=== PATIENT | female | born 1950 | race Caucasian/White ===

== ENCOUNTER 2016-10-06 18:23 | Emergency (ER) | payer OTHER, MEDICARE ==
[2016-10-06 18:31] VITALS: RESP 20
--- NOTE | 2016-10-06 18:45 | EDPHY ---
H & P Time Seen by Provider: 10/06/16 18:39 HPI/ROS: CHIEF COMPLAINT: Hypoxemia, shortness of breath HISTORY OF PRESENT ILLNESS: This patient is a 66 year old female with a history of acute hypoxic respiratory failure in March 2015 and chronic bronchiolitis obliterans who presents to the Emergency Department complaining of intermittent shortness of breath and associated chest tightness and cough beginning two weeks prior to arrival and worsening over time. She has not needed to use oxygen at home since March of 2016 with last reported dose of prednisone in May. She measures her O2 saturation at home and reports measurements between 70-85% over the past two weeks. Today, she measured her O2 saturation at 64% prompting her to presents to the ED. She denies fever or cold-like symptoms. Medical history also includes prior TX, valvular heart disease, and hypertension. REVIEW OF SYSTEMS: Constitutional: No fever, no chills Eyes: No visual changes ENT: No sore throat Respiratory: As in HPI Cardiac: No chest pain Gastrointestinal: No nausea, no vomiting, no abdominal pain Genitourinary: No hematuria, no dysuria Musculoskeletal: No leg pain or swelling Skin: No rash Neurological: No headache, no numbness, no weakness Psychiatric: No depression Past Medical/Surgical History: Prior medical records reviewed by myself including instigating respiratory incident on 05/04/2015. PMH includes: Hypoxic respiratory failure, bronchiolitis obliterans, hypertension, hyperlipidemia, prior TX, mitral valve prolapse, hiatal hernia, GERD. PSH includes: Appendectomy, hysterectomy, tonsillectomy, cholecystectomy, knee surgery. 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 Never smoked. Smoking Status: Never smoked Physical Exam: General Appearance: Alert, no distress Eyes: Pupils equal and round, no conjunctival pallor or injection ENT, Mouth: Mucous membranes moist Neck: Normal inspection Respiratory: Rales chcf up bilaterally, normal respiratory rate Cardiovascular: Regular rate and rhythm Gastrointestinal: Abdomen is soft and non- tender Neurological: A&O, nonfocal, normal gait Skin: Warm and dry, no rash Extremities: Nontender, no pedal edema Psychiatric: Mood and affect normal Constitutional: Initial Vital Signs Temperature (C) 36.9 C 10/06/16 18:28 Heart Rate 88 10/06/16 18:28 Respiratory Rate 20 10/06/16 18:28 Blood Pressure 142/92 H 10/06/16 18:28 O2 Sat (%) 77 L 10/06/16 18:28 O2 Delivery Mode Room Air O2 (L/minute) 4 Allergies/Adverse Reactions: aspirin [Aspirin] Allergy (Severe, Verified 10/06/16 18:26) SEVERE HIVES/THROAT CLOSES neomycin [Neomycin] Allergy (Severe, Verified 10/06/16 18:26) SEVERE SKIN RASH Shellfish *RETIRED-03/10/12 [Shellfish] Allergy (Severe, Verified 10/06/16 18:26 ) Anaphylaxis clarithromycin [From Biaxin] Allergy (Intermediate, Verified 10/06/16 18:26) Hives iodine [Iodine] Allergy (Intermediate, Verified 10/06/16 18:26) Hives strawberry [[place]] Allergy (Intermediate, Verified 10/06/16 18:26) SWELLING/HIVES Sulfa (Sulfonamide Antibiotics) Allergy (Intermediate, Verified 10/06/16 18:26) Hives clobetasol [Clobetasol] Allergy (Verified 10/06/16 18:26) SKIN RASH ALL NARCOTICS Allergy (Severe, Uncoded 11/16/11 17:10) Vomiting Home Medications: Medication Instructions Recorded Amlodipine Besylate [Norvasc] 5 mg PO HS 10/06/16 Azithromycin [Zithromax] 250 mg PO DAILY #4 tab 10/06/16 Nebivolol HCl [Bystolic] 10 mg PO HS 10/06/16 predniSONE 1 tab PO DAILY #30 tab 10/06/16 Medical Decision Making - Diagnostics EKG Interpretation: EKG interpreted by me reveals normal sinus rhythm, rate 77; no ST/T changes. Unchanged from EKG on 05/05/2015. Imaging: Imaging Impressions Chest X-Ray 10/06/16 18:40 Impression: Minimal airways disease unchanged. No acute process. ED Course/Re-evaluation: This is a 66 year old female with complex pulmonary history including bronchiolitis obliterans and respiratory failure first presenting in March 2015 and treated intermittently with prednisolone since that time. She reports intermittent shortness of breath with chest tightness and self-measured hypoxemia ranging from 70-85% over the past two weeks. No cold or flu-like symptoms. She is afebrile. Her exam is significant for rales bilaterally. She was placed on O2 via nasal cannula in the ED with improvement to O2 saturation of 80%. Will proceed with 3ml IH albuterol breathing treatment, 125mg IV Prednisolone, and plan for admission. The patient is agreeable to this treatment plan. She does not wish to proceed with any CT imaging today and declined D-dimer. Labs reviewed and are unremarkable. 1951: The patient is declining admission and stating that she feels much better. Will take her off of O2 and reevaluate. 1952: Consultation with Dr. Stanton, hospitalist, who accepts the admission if the patient is willing to stay. 2007: Following road test, the patient is 77% on RA. She still refuses to stay in the hospital. Will contact respiratory therapy to see if we can arrange outpatient oxygen. 2133: After extensive conversations regarding the risk of choosing to go home, the patient still refuses admission. She understands risk of worsening respiratory failure, respiratory arrest, or . Differential Diagnosis: Differential diagnosis includes though it is not limited to pneumonia, pneumothorax, pulmonary embolism, aortic dissection, pericarditis, acute coronary syndrome. - Data Points Laboratory Results: Laboratory Results 10/06/16 19:20 10/06/16 19:20 10/06/16 10/06/16 19:20 19:20 WBC 8.85 10^3/uL 10^3/uL (3.80-9.50) RBC 4.80 10^6/uL 10^6/uL (4.18-5.33) Hgb 14.4 g/dL g/dL (12.6-16.3) Hct 41.7 % % (38.0-47.0) MCV 86.9 fL fL (81.5-99.8) MCH 30.0 pg pg (27.9-34.1) MCHC 34.5 g/dL g/dL (32.4-36.7) RDW 13.6 % % (11.5-15.2) Plt Count 286 10^3/uL 10^3/uL (150-400) MPV 9.1 fL fL (8.7-11.7) Neut % (Auto) 68.6 % % (39.3-74.2) Lymph % (Auto) 21.8 % % (15.0-45.0) [place] % (Auto) 6.4 % % (4.5-13.0) Eos % (Auto) 2.1 % % (0.6-7.6) Baso % (Auto) 0.8 % % (0.3-1.7) Nucleat RBC Rel Count 0.0 % % (0.0-0.2) Absolute Neuts (auto) 6.06 10^3/uL 10^3/uL (1.70-6.50) Absolute Lymphs (auto) 1.93 10^3/uL 10^3/uL (1.00-3.00) Absolute Monos (auto) 0.57 10^3/uL 10^3/uL (0.30-0.80) Absolute Eos (auto) 0.19 10^3/uL 10^3/uL (0.03-0.40) Absolute Basos (auto) 0.07 10^3/uL 10^3/uL (0.02-0.10) Absolute Nucleated RBC 0.00 10^3/uL 10^3/uL (0-0.01) Immature Gran % 0.3 % % (0.0-1.1) Immature Gran # 0.03 10^3/uL 10^3/uL (0.00-0.10) Sodium 139 mEq/L mEq/L (134-144) Potassium 4.7 mEq/L mEq/L (3.5-5.2) Chloride 106 mEq/L mEq/L (97-110) Carbon Dioxide 22 mEq/l mEq/l (22-31) Anion Gap 11 mEq/L mEq/L (8-16) BUN 17 mg/dL mg/dL (7-23) Creatinine 0.9 mg/dL mg/dL (0.6-1.0) Estimated GFR > 60 Glucose 103 mg/dL H mg/dL (70-100) Calcium 10.4 mg/dL mg/dL (8.5-10.4) Troponin I < 0.012 ng/mL ng/mL (0-0.034) NT-Pro-B Natriuret Pep 636 pg/mL H pg/mL (0-125) Medications Given: Discontinued Medications Albuterol/Ipratropium (Duoneb) 3 ml IH EDNOW ONE Stop: 10/06/16 18:53 Last Admin: 10/06/16 19:31 Dose: 3 ml Azithromycin (Zithromax) 500 mg PO EDNOW ONE PRN Reason: Protocol Stop: 10/06/16 20:14 Last Admin: 10/06/16 22:06 Dose: Not Given Methylprednisolone Sodium Succinate (Solu-Medrol) 125 mg IVP EDNOW ONE Stop: 10/06/16 18:53 Last Admin: 10/06/16 19:31 Dose: 125 mg Departure - Departure Disposition: [facility] Inpatient Acute Clinical Impression: Hypoxia, Bronchiolitis obliterans Condition: Fair Report Scribed for: Barbara Mendoza Report Scribed by: Yane Javier Date of Report: 10/06/16 Time of Report: 18:42 Physician Review and Approval Statement: 10/06/16 18:42 Portions of this note were transcribed by a adjunct faculty for medical terminology. I personally performed a history, physical exam, medical decision making, and confirmed accuracy of information the transcribed note.
[2016-10-06] MEDS ORDERED: methylPREDNISolone SOD SUCC 125 MG/2 ML VIAL IVP ONE (18:52)
[2016-10-06] MEDS ORDERED: IPRATROPIUM/ALBUTEROL 3 ML DEYVIAL IH ONE (18:52)
--- NOTE | 2016-10-06 19:04 | CPEKG ---
Heart Rate: 77 RR Interval: 779 P-R Interval: 180 QRSD Interval: 84 QT Interval: 380 QTC Interval: 431 P [place]: 46 QRS [place]: -9 T Wave [place]: 23 EKG Severity - ABNORMAL ECG - EKG Impression: SINUS RHYTHM EKG Impression: ABNRM R PROG, CONSIDER ASMI OR LEAD PLACEMENT Electronically Signed By: Barbara Mendoza 06-Oct-2016 19:21:29
[2016-10-06 19:32] LABS: % IMMATURE GRANULYOCYTES 0.3 % (0.0-1.1); ABSOLUTE IMMATURE GRANULOCYTES 0.03 10^3/uL (0.00-0.10); ADD DIFF? NO; ADD MORPH? NO; ADD SCAN? NO; ATYPICAL LYMPHOCYTE FLAG 0 (0-99); FRAGMENT RBC FLAG 0 (0-99); HEMATOCRIT 41.7 % (38.0-47.0); HEMOGLOBIN 14.4 g/dL (12.6-16.3); LEFT SHIFT FLG 0 (0-99); LIPEMIA HEMOLYSIS FLAG 90 (0-99); MEAN CELL HEMOGLOBIN CONCENTR. 34.5 g/dL (32.4-36.7); MEAN CELL VOLUME 86.9 fL (81.5-99.8); MEAN PLATELET VOLUME 9.1 fL (8.7-11.7); PLATELET CLUMPS FLAG 50 (0-99); PLATELET COUNT 286 10^3/uL (150-400); RED CELL DISTRIBUTION WIDTH 13.6 % (11.5-15.2)
[2016-10-06 19:54] LABS: ANION GAP 11 mEq/L (8-16); CALCIUM 10.4 mg/dL (8.5-10.4); CARBON DIOXIDE 22 mEq/l (22-31); CHLORIDE 106 mEq/L (97-110); CREATININE 0.9 mg/dL (0.6-1.0); GLOMERULAR FILTRATION RATE > 60; GLUCOSE 103 mg/dL (70-100); POTASSIUM 4.7 mEq/L (3.5-5.2); SODIUM 139 mEq/L (134-144)
[2016-10-06 20:06] LABS: TROPONIN I < 0.012 ng/mL (0-0.034)
[2016-10-06] MEDS ORDERED: ONDANSETRON DISINTEGRATING 4 MG TAB PO PRN (20:06)
[2016-10-06] MEDS ORDERED: ONDANSETRON 4 MG/2 ML VIAL IVP PRN (20:06)
[2016-10-06] MEDS ORDERED: ACETAMINOPHEN 325 MG TAB PO PRN (20:06)
[2016-10-06] MEDS ORDERED: AZITHROMYCIN 250 MG TAB PO ONE (20:13)
--- NOTE | 2016-10-06 20:37 | PDGENHP ---
History and Physical - Chief Complaint Acute shortness of breath - History of Present Illness PCP: Dr. Madrigal Primary Pulm: Dr. De Guzman Primary Cards: Dr. Castrejon HPI: 66 yo F p/w acute shortness of breath characterized as inability to catch her breath and getting winded easily, exacerbated by physical activity, assoc w / non-productive cough but no other infectious symptoms. Onset approx 2 weeks ago and duration persistent and worsening thereafter. Denies any recent travel or periods of immobility. She has been documenting home o2 sats, and they have been in the high 70s-80s% most of the past two weeks, but acutely dropped to 64 % on room air today. She has not taken any steroids since May 2016. She denies overt chest pain, denies leg swelling or weight gain. History Information - Allergies/Home Medication List Allergies/Adverse Reactions: aspirin [Aspirin] Allergy (Severe, Verified 10/06/16 18:26) SEVERE HIVES/THROAT CLOSES neomycin [Neomycin] Allergy (Severe, Verified 10/06/16 18:26) SEVERE SKIN RASH Shellfish *RETIRED-03/10/12 [Shellfish] Allergy (Severe, Verified 10/06/16 18:26 ) Anaphylaxis clarithromycin [From Biaxin] Allergy (Intermediate, Verified 10/06/16 18:26) Hives iodine [Iodine] Allergy (Intermediate, Verified 10/06/16 18:26) Hives strawberry [[place]] Allergy (Intermediate, Verified 10/06/16 18:26) SWELLING/HIVES Sulfa (Sulfonamide Antibiotics) Allergy (Intermediate, Verified 10/06/16 18:26) Hives clobetasol [Clobetasol] Allergy (Verified 10/06/16 18:26) SKIN RASH ALL NARCOTICS Allergy (Severe, Uncoded 11/16/11 17:10) Vomiting Home Medications: Amlodipine Besylate [Norvasc] 5 mg PO HS 10/06/16 [Last Taken 10/05/16 20:00] Nebivolol HCl [Bystolic] 10 mg PO HS 10/06/16 [Last Taken 10/05/16 20:00] I have personally reviewed and updated: family history, medical history, social history, surgical history - Past Medical History hypertension, hyperlipidemia Additional medical history: Bronchiolitis Obliterans, last exacerbation - w/ long steroid taper and Abx. NSTEMI Type 2 in setting of Acute Respiratory Failure. Hiatal hernia w/ GERD. Pulm HTN - Surgical History Reports: appendectomy, cholecystectomy, hysterectomy Additional surgical history: Knee, Shoulder, Bunion, Tonsils - Family History Additional family history: no family pulm hx - Social History Smoking Status: Never smoked Alcohol Use: Occasionally Drug Use: None Additional social history: independent in ADLs Review of Systems ROS: 10pt was reviewed & negative except for what was stated in HPI & below Respiratory: Reports: cough, shortness of breath Physical Exam Temp Pulse Resp BP Pulse Ox 36.9 C 88 20 142/92 H 77 L 10/06/16 18:28 10/06/16 18:28 10/06/16 18:28 10/06/16 18:28 10/06/16 20:00 Constitutional: no apparent distress, appears nourished, not in pain Eyes: PERRL, anicteric sclera, EOMI Ears, Nose, Mouth, Throat: moist mucous membranes, hearing normal, ears appear normal, no oral mucosal ulcers Cardiovascular: regular rate and rhythym, no murmur, rub, or gallop, No edema Respiratory: reduced air movement (on inspiration R base), inspiratory crackles (bilat bases, R>L), No expiratory wheeze, No bronchial breath sounds, No respiratory distress Gastrointestinal: normoactive bowel sounds, soft, non-tender abdomen, no palpable masses Neurologic: AAOx3, sensation intact bilaterally, No weakness Psychiatric: interacting appropriately, not anxious, not encephalopathic, thought process linear Lymph, Heme, Immunologic: no cervical LAD, no supraclavicular LAD Lab Data & Imaging Review 10/06/16 19:20 10/06/16 19:20 WBC 8.85 10^3/uL (3.80-9.50) 10/06/16 19:20 RBC 4.80 10^6/uL (4.18-5.33) 10/06/16 19:20 Hgb 14.4 g/dL (12.6-16.3) 10/06/16 19:20 Hct 41.7 % (38.0-47.0) 10/06/16 19:20 MCV 86.9 fL (81.5-99.8) 10/06/16 19:20 MCH 30.0 pg (27.9-34.1) 10/06/16 19:20 MCHC 34.5 g/dL (32.4-36.7) 10/06/16 19:20 RDW 13.6 % (11.5-15.2) 10/06/16 19:20 Plt Count 286 10^3/uL (150-400) 10/06/16 19:20 MPV 9.1 fL (8.7-11.7) 10/06/16 19:20 Neut % (Auto) 68.6 % (39.3-74.2) 10/06/16 19:20 Lymph % (Auto) 21.8 % (15.0-45.0) 10/06/16 19:20 [place] % (Auto) 6.4 % (4.5-13.0) 10/06/16 19:20 Eos % (Auto) 2.1 % (0.6-7.6) 10/06/16 19:20 Baso % (Auto) 0.8 % (0.3-1.7) 10/06/16 19:20 Nucleat RBC Rel Count 0.0 % (0.0-0.2) 10/06/16 19:20 Absolute Neuts (auto) 6.06 10^3/uL (1.70-6.50) 10/06/16 19:20 Absolute Lymphs (auto) 1.93 10^3/uL (1.00-3.00) 10/06/16 19:20 Absolute Monos (auto) 0.57 10^3/uL (0.30-0.80) 10/06/16 19:20 Absolute Eos (auto) 0.19 10^3/uL (0.03-0.40) 10/06/16 19:20 Absolute Basos (auto) 0.07 10^3/uL (0.02-0.10) 10/06/16 19:20 Absolute Nucleated RBC 0.00 10^3/uL (0-0.01) 10/06/16 19:20 Immature Gran % 0.3 % (0.0-1.1) 10/06/16 19:20 Immature Gran # 0.03 10^3/uL (0.00-0.10) 10/06/16 19:20 Sodium 139 mEq/L (134-144) 10/06/16 19:20 Potassium 4.7 mEq/L (3.5-5.2) 10/06/16 19:20 Chloride 106 mEq/L (97-110) 10/06/16 19:20 Carbon Dioxide 22 mEq/l (22-31) 10/06/16 19:20 Anion Gap 11 mEq/L (8-16) 10/06/16 19:20 BUN 17 mg/dL (7-23) 10/06/16 19:20 Creatinine 0.9 mg/dL (0.6-1.0) 10/06/16 19:20 Estimated GFR > 60 10/06/16 19:20 Glucose 103 mg/dL (70-100) H 10/06/16 19:20 Calcium 10.4 mg/dL (8.5-10.4) 10/06/16 19:20 Troponin I < 0.012 ng/mL (0-0.034) 10/06/16 19:20 NT-Pro-B Natriuret Pep 636 pg/mL (0-125) H 10/06/16 19:20 Visualized and Interpreted Chest x-ray results: Yes Chest X-Ray results: other (faint airway disease RLL w/o change from prior) Visualized and Interpreted EKG results: Yes EKG Interpretation: Positive for: other (Q wave in III/aVF, Poor R wave prog V2) Assessment & Plan Assessment: 66 yo F p/w acute exacerbation of bronchiolitis obliterans w/ resultant hypoxia Plan: 1. Bronchiolitis Obliterans. Acute exacerbation, does not appear to have a bacterial infectious cause (nl WBC, no fever, no infxn symptoms) and no concerning signs of ACS - significant, severe hypoxia on presentation w/ symptoms - reviewed outside records including DC Summary by Dr. 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 Mendoza, if patient is able to have home o2 arranged and feels safe managing, then we agree to discharge her from ED - recommended to patient she call Dr. De Guzman on Saturday and arrange immediate outpt f/u, and if unable, then call Dr. Castrejon for outpt f/u 2. Pulm HTN. Chronic, likely warrants repeat outpt Echo - arranging O2 3. HTN. Chronic, cont home Rx as is Patient would like to be discharged from ED at this time, will arrange home o2.
[2016-10-06 22:08] VITALS: BP 185/83; PULSE 86; TEMP 98.8; O2SAT 85
[2016-10-07] MEDS ORDERED: ENOXAPARIN 40 MG/0.4 ML SYR SC SCH (09:00)
[2016-10-07] MEDS ORDERED: amLODIPine BESYLATE 5 MG TAB PO SCH (21:00)
[2016-10-07] MEDS ORDERED: NON-FORMULARY NEW DRUG (Nebivolol Hcl [Bystolic] 10 MG) PO SCH (21:00)
== END 2016-10-06 22:14 | disposition still patient (30) ==
LOC: UNDOADMOB 19:55
DX: J42 Unspecified chronic bronchitis (principal)
CPT/HCPCS: 96374

== ENCOUNTER → 2016-11-12 | Outpatient (CLI) | payer OTHER, MEDICARE | LOC: BHFA 09:15 | PROVIDERS: ATTEND Internal Medicine Cardiovascular Disease | DX: R07.9 Chest pain, unspecified (principal); R06.02 Shortness of breath ==

== ENCOUNTER → 2016-11-22 | Outpatient (CLI) | payer OTHER, MEDICARE | LOC: BHFA 13:15 | PROVIDERS: ATTEND Internal Medicine Cardiovascular Disease | DX: I34.1 Nonrheumatic mitral (valve) prolapse (principal); R06.00 Dyspnea, unspecified | CPT/HCPCS: 78452; 93017; 93306; A9500 ==

== ENCOUNTER → 2016-12-18 | Outpatient (CLI) | payer OTHER, MEDICARE | LOC: FIMAGING 10:23 | PROVIDERS: ATTEND Internal Medicine | DX: Z13.820 Encounter for screening for osteoporosis (principal); M85.80 Other specified disorders of bone density and structure, unspecified site; E78.5 Hyperlipidemia, unspecified; Z78.0 Asymptomatic menopausal state ==

== ENCOUNTER → 2017-04-12 | Outpatient (CLI) | payer OTHER, MEDICARE | LOC: FCPNEURO 20:00 | PROVIDERS: ATTEND Psychiatry & Neurology Sleep Medicine | DX: G47.34 Idiopathic sleep related nonobstructive alveolar hypoventilation (principal) ==

== ENCOUNTER → 2017-06-17 | Outpatient (CLI) | payer OTHER, MEDICARE | LOC: FIMAGING 09:43 | PROVIDERS: ATTEND Internal Medicine | DX: Z12.31 Encounter for screening mammogram for malignant neoplasm of breast (principal) | CPT/HCPCS: G0202 ==

== ENCOUNTER → 2017-08-23 | Outpatient (CLI) | payer OTHER, MEDICARE | LOC: CIMAGING 09:06 | PROVIDERS: ATTEND Internal Medicine Cardiovascular Disease | DX: R91.8 Other nonspecific abnormal finding of lung field (principal); G47.34 Idiopathic sleep related nonobstructive alveolar hypoventilation | CPT/HCPCS: 71250-PO ==

== ENCOUNTER → 2018-06-18 | Outpatient (CLI) | payer OTHER, MEDICARE | LOC: FIMAGING 09:55 | PROVIDERS: ATTEND Internal Medicine | DX: Z12.31 Encounter for screening mammogram for malignant neoplasm of breast (principal) ==

== ENCOUNTER → 2018-06-27 | Outpatient (CLI) | payer OTHER, MEDICARE | LOC: FIMAGING 10:34 | PROVIDERS: ATTEND Internal Medicine | DX: N63.10 Unspecified lump in the right breast, unspecified quadrant (principal) ==

== ENCOUNTER → 2018-07-07 | Outpatient (CLI) | payer OTHER, MEDICARE ==
[~2018-07-07] MED LIST: BUPIVACAINE 0.5% 30 ML SDV ONE; LIDOCAINE 1% 300 MG/30 ML SDV ONE
== END ==
LOC: FIMAGING 07:19
PROVIDERS: ATTEND Internal Medicine
PROC: 0HBT3ZX Excision of Right Breast, Percutaneous Approach, Diagnostic (ICD-10-PCS; principal; 2018-07-07)
DX: R92.8 Other abnormal and inconclusive findings on diagnostic imaging of breast (principal); N60.11 Diffuse cystic mastopathy of right breast

== ENCOUNTER → 2018-12-05 | Outpatient (CLI) | payer OTHER, MEDICARE | LOC: FIMAGING 09:28 ==